=== PATIENT | male | born 1950 | race Caucasian/White ===

== ENCOUNTER 2021-02-18 02:50 | Inpatient (IN) | payer MEDICARE ==
[2021-02-18] MEDS ORDERED: SODIUM CHLORIDE 0.9% 1,000 ML IV STA (02:52)
[2021-02-18] MEDS ORDERED: ACETAMINOPHEN TAB 500 MG TAB PO STA (02:52)
[2021-02-18] MEDS ORDERED: ALBUTEROL HFA INHALER INHALATION STA (02:52)
[2021-02-18] MEDS ORDERED: KETOROLAC 15 MG/ML 1 ML VIAL IVP STA (02:52)
[2021-02-18] MEDS ORDERED: DEXAMETHASONE SOD PHOSPHATE 10 MG/ML 1 ML VIAL IV STA (02:52)
--- NOTE | 2021-02-18 03:05 | ED ---
Recheck HPI - General Stated Complaint: SOB,Covid+ Time Seen by Provider: 02/18/21 02:52 Source: RN notes reviewed, old records reviewed Mode of arrival: ambulatory Limitations: no limitations - History of Present Illness Initial Comments: This is a 70-year-old male DF for evaluation severe shortness of breath. Patient was diagnosed with coronavirus and 02/04/2021 Patient breathing symptoms that began a week or so prior. Patient having persistent significant shortness of breath. He did have a four-day hospital stay after diagnosis and has not improved since discharge MD Complaint: other (Skin shortness of breath and weakness secondary to coron avirus) -: week(s) Returns Today for: Called Because of Abnormal Lab/Test, persistent/worsening pain related to initial visit Symptoms Since Prior Visit: worsening pain, fever Context: planned re-check Associated Symptoms: fever, chills, chest pain, shortness of breath Treatments Prior to Arrival: Given Pain Meds on - Related Data Allergies Allergy/AdvReac Type Severity Reaction Status Date / Time No Known Allergies Allergy Verified 02/18/21 03:07 Review of Systems ROS Statement: Those systems with pertinent positive or pertinent negative responses have been documented in the HPI. ROS Other: All systems not noted in ROS Statement are negative. General Exam General appearance: alert, in no apparent distress, anxious, in distress Head exam: Present: atraumatic, normocephalic, normal inspection Eye exam: Present: normal appearance, PERRL, EOMI. Absent: scleral icterus, conjunctival injection, periorbital swelling ENT exam: Present: normal exam, mucous membranes moist Neck exam: Present: normal inspection. Absent: tenderness, meningismus, lymphadenopathy Respiratory exam: Present: normal lung sounds bilaterally. Absent: respiratory distress, wheezes, rales, rhonchi, stridor Cardiovascular Exam: Present: regular rate, normal rhythm, normal heart sounds. Absent: systolic murmur, diastolic murmur, rubs, gallop, clicks GI/Abdominal exam: Present: soft, normal bowel sounds. Absent: distended, tenderness, guarding, rebound, rigid Extremities exam: Present: normal inspection, full ROM, normal capillary refill. Absent: tenderness, pedal edema, joint swelling, calf tenderness Back exam: Present: normal inspection Neurological exam: Present: alert, oriented X3, CN II-XII intact Psychiatric exam: Present: normal affect, normal mood Skin exam: Present: warm, dry, intact, normal color. Absent: rash Course Vital Signs 02/18/21 02/18/21 02/18/21 03:05 03:30 03:52 Temperature 97.8 F Pulse Rate 100 96 Respiratory 22 22 16 Rate Blood Pressure 150/95 124/84 O2 Sat by Pulse 93 L 95 Oximetry 02/18/21 05:00 Temperature Pulse Rate 87 Respiratory 18 Rate Blood Pressure 127/77 O2 Sat by Pulse 97 Oximetry - Reevaluation(s) Reevaluation #1: 02/18/21 06:15 Medical record is reviewed Medical Decision Making - Lab Data Result diagrams: 02/18/21 03:20 02/18/21 03:20 Lab Results 02/18/21 02/18/21 02/18/21 Range/Units 03:20 03:20 03:20 WBC 12.5 H (3.8-10.6) k/uL RBC 4.60 (4.30-5.90) m/uL Hgb 14.6 (13.0-17.5) gm/dL Hct 41.9 (39.0-53.0) % MCV 91.1 (80.0-100.0) fL MCH 31.7 (25.0-35.0) pg MCHC 34.8 (31.0-37.0) g/dL RDW 13.3 (11.5-15.5) % Plt Count 277 (150-450) k/uL MPV 7.4 Neutrophils % 85 % Lymphocytes % 6 % Monocytes % 5 % Eosinophils % 2 % Basophils % 0 % Neutrophils # 10.6 H (1.3-7.7) k/uL Lymphocytes # 0.7 L (1.0-4.8) k/uL Monocytes # 0.7 (0-1.0) k/uL Eosinophils # 0.2 (0-0.7) k/uL Basophils # 0.0 (0-0.2) k/uL PT 10.4 (9.0-12.0) sec INR 1.0 (<1.2) APTT 22.9 (22.0-30.0) sec Sodium (137-145) mmol/L Potassium (3.5-5.1) mmol/L Chloride (98-107) mmol/L Carbon Dioxide (22-30) mmol/L Anion Gap mmol/L BUN (9-20) mg/dL Creatinine (0.66-1.25) mg/dL Est GFR (CKD-EPI)AfAm (>60 ml/min/1.73 sqM) Est GFR (CKD-EPI)NonAf (>60 ml/min/1.73 sqM) Glucose (74-99) mg/dL Plasma Lactic Acid Kuldeep (0.7-2.0) mmol/L Calcium (8.4-10.2) mg/dL Magnesium (1.6-2.3) mg/dL Total Bilirubin (0.2-1.3) mg/dL AST (17-59) U/L ALT (4-49) U/L Alkaline Phosphatase (38-126) U/L Lactate Dehydrogenase (313-618) U/L C-Reactive Protein (<1.0) mg/dL NT-Pro-B Natriuret Pep 113 pg/mL Total Protein (6.3-8.2) g/dL Albumin (3.5-5.0) g/dL 02/18/21 02/18/21 Range/Units 03:20 03:20 WBC (3.8-10.6) k/uL RBC (4.30-5.90) m/uL Hgb (13.0-17.5) gm/dL Hct (39.0-53.0) % MCV (80.0-100.0) fL MCH (25.0-35.0) pg MCHC (31.0-37.0) g/dL RDW (11.5-15.5) % Plt Count (150-450) k/uL MPV Neutrophils % % Lymphocytes % % Monocytes % % Eosinophils % % Basophils % % Neutrophils # (1.3-7.7) k/uL Lymphocytes # (1.0-4.8) k/uL Monocytes # (0-1.0) k/uL Eosinophils # (0-0.7) k/uL Basophils # (0-0.2) k/uL PT (9.0-12.0) sec INR (<1.2) APTT (22.0-30.0) sec Sodium 130 L (137-145) mmol/L Potassium 4.5 (3.5-5.1) mmol/L Chloride 97 L (98-107) mmol/L Carbon Dioxide 26 (22-30) mmol/L Anion Gap 7 mmol/L BUN 16 (9-20) mg/dL Creatinine 0.68 (0.66-1.25) mg/dL Est GFR (CKD-EPI)AfAm >90 (>60 ml/min/1.73 sqM) Est GFR (CKD-EPI)NonAf >90 (>60 ml/min/1.73 sqM) Glucose 115 H (74-99) mg/dL Plasma Lactic Acid Kuldeep 1.4 (0.7-2.0) mmol/L Calcium 8.9 (8.4-10.2) mg/dL Magnesium 2.0 (1.6-2.3) mg/dL Total Bilirubin 0.7 (0.2-1.3) mg/dL AST 24 (17-59) U/L ALT 29 (4-49) U/L Alkaline Phosphatase 82 (38-126) U/L Lactate Dehydrogenase 825 H (313-618) U/L C-Reactive Protein 7.2 H (<1.0) mg/dL NT-Pro-B Natriuret Pep pg/mL Total Protein 6.5 (6.3-8.2) g/dL Albumin 3.2 L (3.5-5.0) g/dL - EKG Data -: EKG Interpreted by Me (EKG is sinus tachycardia [id number] QRS 94 QTC 471) Disposition Referrals: Ascencion Anaya MD [Primary Care Provider] - 1-2 days
[2021-02-18 03:42] LABS: Basophils % (A) 0 %; Eosinophils # (A) 0.2 k/uL (0-0.7); Eosinophils % (A) 2 %; HCT 41.9 % (39.0-53.0); HGB 14.6 gm/dL (13.0-17.5); Lymphocytes # (A) 0.7 k/uL (1.0-4.8); Lymphocytes % (A) 6 %; MCH 31.7 pg (25.0-35.0); MCHC 34.8 g/dL (31.0-37.0); MCV 91.1 fL (80.0-100.0); Mean Platelet Volume 7.4; Monocytes # (A) 0.7 k/uL (0-1.0); Monocytes % (A) 5 %; Neutrophils # (A) 10.6 k/uL (1.3-7.7); Neutrophils % (A) 85 %; Platelet Count 277 k/uL (150-450); RDW 13.3 % (11.5-15.5); WBC 12.5 k/uL (3.8-10.6)
[2021-02-18 03:48] LABS: Partial Thromboplastin Time 22.9 sec (22.0-30.0); Prothrombin Time 10.4 sec (9.0-12.0)
[2021-02-18 03:53] LABS: ALT 29 U/L (4-49); AST 24 U/L (17-59); African American GFR (CKD) >90 (>60 ml/min/1.73 sqM); Albumin 3.2 g/dL (3.5-5.0); Alkaline Phosphatase 82 U/L (38-126); Anion Gap 7 mmol/L; Blood Urea Nitrogen 16 mg/dL (9-20); C Reactive Protein 7.2 mg/dL (<1.0); Calcium 8.9 mg/dL (8.4-10.2); Carbon Dioxide 26 mmol/L (22-30); Chloride 97 mmol/L (98-107); Glucose 115 mg/dL (74-99); LDH 825 U/L (313-618); Non-African American GFR(CKD) >90 (>60 ml/min/1.73 sqM); Potassium 4.5 mmol/L (3.5-5.1); Sodium 130 mmol/L (137-145); Total Bilirubin 0.7 mg/dL (0.2-1.3); Total Protein 6.5 g/dL (6.3-8.2)
--- NOTE | 2021-02-18 05:02 | CT ---
EXAMINATION TYPE: CT angio chest DATE OF EXAM: 02/18/2021 COMPARISON: None HISTORY: R/O PE CT DLP: 648.20 mGycm Automated exposure control for dose reduction was used. CONTRAST: Performed with IV Contrast, patient injected with 90 mL of Isovue 370. Images obtained from the thoracic inlet to the diaphragm with IV contrast. There are 3-D post process ed images. There is extensive patchy predominantly peripheral interstitial and airspace infiltrate. There are a few mediastinal lymph nodes up to 1.5 cm. There are bilateral mild bronchial lymph nodes up to 1 cm. Thoracic aorta is intact. There is no aneurysm or dissection. There is normal contrast opacification of the pulmonary arteries. I see no filling defect. There is s uboptimal contrast density in the smaller branches of the pulmonary arteries. Thoracic spine is intac t. Sternum is intact. IMPRESSION: No evidence of pulmonary embolism. Extensive bilateral pneumonia. Mild mediastinal and bronchial mateus opathy.
[2021-02-18] MEDS ORDERED: MORPHINE SULFATE 4 MG/ML SYRINGE IV PRN (06:06)
[2021-02-18] MEDS ORDERED: NALOXONE 0.4 MG/ML 1 ML VIAL IV PRN (06:06)
[2021-02-18] MEDS ORDERED: ONDANSETRON 4 MG/2 ML VIAL IVP PRN (06:06)
[2021-02-18] MEDS ORDERED: ACETAMINOPHEN TAB 325 MG TAB PO PRN (06:06)
[2021-02-18] MEDS: SODIUM CHLORIDE 0.9% 1,000 ML IV SCH ×3 (08:16→22:53)
[2021-02-18] MEDS ORDERED: ENOXAPARIN 40 MG/0.4 ML SYRINGE SQ SCH (09:00)
--- NOTE | 2021-02-18 13:09 | P.CNPUL ---
<Rosa Isela Zarco - Last Filed: 02/18/21 13:01> History of Present Illness Consult date: 02/18/21 Requesting physician: Donald Cabrera Reason for consult: hypoxemia, abnormal CXR/CT Chief complaint: Shortness of breath, cough, CoVID History of present illness: This is a very pleasant 70-year-old gentleman who follows with Dr. Arnold as his primary care provider. He has a history of hypertension. 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 He was seen and evaluated at the [facility] that was back in 2012. Since that time he had been doing very well. 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 When he got back to [facility] and he started feeling worse and thought it was the mold exposure and was treated 1-1/2 weeks with steroids. He did not get any better. By February 04 he had gone to the emergency room at [place] and was tested positive. Pneumonia. He stayed 4 days in the hospital and was d ischarged home on oxygen. He is still not been feeling quite back to his baseline. He presented here to the emergency room early this a.m. and had complaints of increasing shortness of breath cough and congestion. He is seen today in consultation in the emergency room. He is currently sitting up on the stretcher. Awake and alert in mild respiratory distress. Dry nonproductive cough. Maintaining O2 saturations in the 90s on 4 L/m per nasal cannula. He is afebrile. Hemodynamically stable. White count 12.5. Hemoglobin 14.6. Lymphocytes 0.7. Sodium 1:30. Potassium 4.5. Creatinine 0.68. Glucose 1:15. LDH 825. C-reactive protein 7.2. CT angiogram ruled out pulmonary embolism. T here is an extensive bilateral pneumonia. Mild mediastinal and bronchial adenopathy. He's been initiated on Decadron, Lovenox albuterol. Review of Systems REVIEW OF SYSTEMS: CONSTITUTIONAL: Denies any recent significant weight loss or weight gain. EYES: Denies change in vision. EARS, NOSE, MOUTH, THROAT: Denies headaches, denies sore throat. CARDIOVASCULAR: Denies chest pain, palpitations or syncopal episodes. RESPIRATORY: Positive for shortness of breath, cough, congestion no hemoptysis. GASTROINTESTINAL: Denies change in appetite, denies abdominal pain GENITOURINARY: Denies hematuria, denies infections. MUSKULOSKELETAL: Denies pain, denies swelling. INTEGUMENTARY: Denies rash, denies eczema. NEUROLOGICAL: Denies recent memory loss, no recent seizure activity. PSYCHIATRIC: Denies anxiety, denies depression. HEMATOLOGIC/LYMPHATIC: Denies anemia, denies enlarged lymph nodes. Past Medical History Past Medical History: Hypertension History of Any Multi-Drug Resistant Organisms: None Reported Past Surgical History: No Surgical Hx Reported Past Psychological History: No Psychological Hx Reported Smoking Status: Never smoker Past Alcohol Use History: None Reported Past Drug Use History: None Reported Medications and Allergies Home Medications Medication Instructions Recorded Confirmed Type Albuterol Sulfate [Ventolin HFA] 1 puff INHALATION RT-Q4H PRN 02/18/21 02/18/21 History Hydrocortisone Pr Cream 1 applic RECTAL BID 02/18/21 02/18/21 History [Proctosol-Hc 2.5%] lisinopriL 20 mg PO DAILY 02/18/21 02/18/21 History Allergies Allergy/AdvReac Type Severity Reaction Status Date / Time No Known Allergies Allergy Verified 02/18/21 07:05 Physical Exam Vitals: Vital Signs Temp Pulse Resp BP Pulse Ox 02/18/21 08:11 98.6 F 76 16 134/80 96 02/18/21 06:00 89 18 117/79 95 02/18/21 05:00 87 18 127/77 97 02/18/21 03:52 96 16 124/84 95 02/18/21 03:30 22 02/18/21 03:05 97.8 F 100 22 150/95 93 L Intake and Output 02/17/21 02/18/21 02/18/21 22:59 06:59 14:59 Other: Weight 117.934 kg GENERAL EXAM: Alert, obese, very pleasant 70-year-old gentleman, on 4 L nasal cannula, fairly comfortable in no apparent distress. HEAD: Normocephalic. EYES: Normal reaction of pupils, equal size. NOSE: Clear with pink turbinates. THROAT: No erythema or exudates. NECK: No masses, no JVD. CHEST: No chest wall deformity. LUNGS: Equal air entry with coarse crackles in the posterior bases. CVS: S1 and S2 normal with no audible murmur, regular rhythm. ABDOMEN: No hepatosplenomegaly, normal bowel sounds, no guarding or rigidity. SPINE: No scoliosis or deformity SKIN: No rashes CENTRAL NERVOUS SYSTEM: No focal deficits, tone is normal in all 4 extremities. EXTREMITIES: There is no peripheral edema. No clubbing, no cyanosis. Peripheral pulses are intact. Results - Laboratory Findings CBC and BMP: 02/18/21 03:20 02/18/21 03:20 PT/INR, D-dimer PT 10.4 sec (9.0-12.0) 02/18/21 03:20 INR 1.0 (<1.2) 02/18/21 03:20 Abnormal lab findings: Abnormal Labs 02/18/21 02/18/21 03:20 03:20 WBC 12.5 H Neutrophils # 10.6 H Lymphocytes # 0.7 L Sodium 130 L Chloride 97 L Glucose 115 H Lactate Dehydrogenase 825 H C-Reactive Protein 7.2 H Albumin 3.2 L - Diagnostic Findings CT scan - chest: image reviewed Assessment and Plan Assessment: 1 Acute hypoxemic respiratory failure secondary to acute COVID-19 pneumonia. Initial diagnosis 02/04/2021. Outside the window for Remdesivir. 2 Recent hospitalization earlier this month for 4 days at [facility] for COVID-19 pneumonia. Discharged home on oxygen. 3 Previous history of mold exposure with significant pulmonary symptoms treated at the [facility] in 2012 4 Obesity 5 Hypertension 6 Nonsmoker Plan: The patient was seen and evaluated by Dr. Kruger Labs and CAT scan of the chest reviewed Outside the window for Remdesivir On oxygen at 4 L/m Continue Decadron 6 mg daily, Lovenox 40 mg daily Add vitamin supplements Titrate the FiO2 as tolerated Follow-up chest x-ray and labs in the a.m. We will continue to follow and make further recommendations based on his clinical status I, the cosigning physician, performed a history & physical examination of the patient. Lungs sounds are coarse crackles in the posterior bases. Maintaining good O2 saturations in the 90s on 4 L/m per nasal cannula. I discussed the assessment and plan of care with my nurse practitioner, Rosa Isela Zarco. I attest to the above consultation as dictated by her. Time with Patient: Greater than 30 <Anselmo Kruger - Last Filed: 02/18/21 16:31> Physical Exam Vitals: Vital Signs Temp Pulse Resp BP Pulse Ox 02/18/21 13:44 98.8 F 86 18 036/88 94 L 02/18/21 08:11 98.6 F 76 16 134/80 96 02/18/21 06:00 89 18 117/79 95 02/18/21 05:00 87 18 127/77 97 02/18/21 03:52 96 16 124/84 95 02/18/21 03:30 22 02/18/21 03:05 97.8 F 100 22 150/95 93 L Intake and Output 02/18/21 02/18/21 02/18/21 06:59 14:59 22:59 Other: Weight 117.934 kg Results - Laboratory Findings CBC and BMP: 02/18/21 03:20 02/18/21 03:20 PT/INR, D-dimer PT 10.4 sec (9.0-12.0) 02/18/21 03:20 INR 1.0 (<1.2) 02/18/21 03:20 Abnormal lab findings: Abnormal Labs 02/18/21 02/18/21 03:20 03:20 WBC 12.5 H Neutrophils # 10.6 H Lymphocytes # 0.7 L Sodium 130 L Chloride 97 L Glucose 115 H Lactate Dehydrogenase 825 H C-Reactive Protein 7.2 H Albumin 3.2 L Assessment and Plan Assessment: I saw this patient an emergency in conjunction with the nurse practitioner. This patient is diagnosed having COVID-19 infection on 02/04/2021. In my opinion, the patient is gradually recovering. No objective evidence of any wo rsening his condition. I'm going to obtain a CAT scan from [facility] and compared to the current CAT scan and assess his disease progression. He is currently on levothyroxine by nasal cannula. He'll be given a short course of steroids. He'll be hospitalized. D-dimer will be checked. Doppler of the lower extremity will be checked. If all stable, the patient can be discharged home within next 24-48 hours. No need for Remdesivir. No need for any further treatment at this point in time. Resume home medications. We'll continue to follow.
[2021-02-18] MEDS: HYDROCORTISONE 2.5% RECTAL CREAM 30 GM TUBE RECTAL SCH ×2 (13:43→22:40)
[2021-02-18] MEDS: CHOLECALCIFEROL 25 MCG (1000 IU) TABLET PO SCH (13:50)
[2021-02-18] MEDS: ZINC SULFATE 220 MG CAP PO SCH (13:50)
[2021-02-18] MEDS: ASCORBIC ACID 500 MG TAB PO SCH (13:50)
[2021-02-18] MEDS: lisinopriL 20 MG TAB PO SCH (13:50)
--- NOTE | 2021-02-18 18:05 | US ---
EXAMINATION TYPE: US venous doppler duplex LE DATE OF EXAM: 02/18/2021 5:46 PM COMPARISON: NONE CLINICAL HISTORY: dyspnea, rule out DVT. Dyspnea, rule out DVT. Patient takes aspirin. No hx of DVT. SIDE PERFORMED: Bilateral TECHNIQUE: The lower extremity deep venous system is examined utilizing real time linear array sonog izaiah with graded compression, doppler sonography and color-flow sonography. VESSELS IMAGED: Common Femoral Vein Deep Femoral Vein Greater Saphenous Vein * Femoral Vein Popliteal Vein Small Saphenous Vein * Proximal Calf Veins (* superficial vessels) Right Leg: Rouleaux flow seen throughout veins imaged. No evidence of DVT in veins imaged at this ti me. Left Leg: Internal echoes seen within distal femoral vein at valve, in popliteal vein,and in prox ca lf veins. Color defect seen within these vein segments. There is bilateral peripheral vascular arterial disease. IMPRESSION: 1. Deep vein thrombosis of the left lower extremity-distal femoral vein to popliteal vein and proxima l calf veins. 2. Slow venous flow in the the right lower extremity. 3. Bilateral peripheral vascular arterial disease.
--- NOTE | 2021-02-18 20:15 | P.HPIM ---
History of Present Illness H&P Date: 02/18/21 Chief Complaint: Shortness breath, cough This is a pleasant 70-year-old patient who follows with . Patient had opted not to take the vaccine for COVID 19. On February 04 patient was diagnosed with COVID 19. Patient had just very symptoms the week prior to that. Patient is admitted to [facility] from February 04 through February 08. Will discharge on 3 L of oxygen. Upper discharge patient remained to have cough some 6 phlegm. Shortness of breath. Appetite is fair. Bowel movements are regular. No loss of taste or smell. No headaches. No edema. Patient other tired. Decided to come back to the ER. Admitted. Review of systems: GEN.: Tired EYES: None HEENT: None NECK: None RESPIRATORY: As above CARDIOVASCULAR: None GASTROINTESTINAL: None GENITOURINARY: None MUSCULOSKELETAL: None LYMPHATICS: None HEMATOLOGICAL: None PSYCHIATRY: None NEUROLOGICAL: None Past medical history to include: COVID 19 diagnosed on 02/04/2021, hypertension, hemorrhoids Social history: . 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 Alcohol rarely. Family history: Cancer Physical examination: VITAL SIGNS: 97.8, 100, 22, 150/95, 93% on 3 L GENERAL: BMI 35.3, sitting was incised side of the bed, coughing, short of breath. EYES: Pupils equal. Conjunctiva normal. HEENT: External appearance of nose and ears normal, oral cavity grossly normal. NECK: JVD not raised; masses not palpable. HEART: First and second heart sounds are normal; no edema. LUNGS: Respiratory rate increased, decreased breaths on some coarse crackles. ABDOMEN: Soft, nontender, liver spleen not palpable, no masses palpable. PSYCH: Alert and oriented x3; mood and affect anxiousl. NEUROLOGICAL: Cranial nerves grossly intact; no facial asymmetry, power and sensation grossly intact. LYMPHATICS: No lymph nodes palpable in the axilla and neck INVESTIGATIONS, reviewed in the clinical context: WBC 12.5 hemoglobin 14.6 platelets 277 lymphocytes 0.7 d-dimer 23.8 sodium 1:30 potassium 4.5 creatinine 0.68 LDH 825 CRP 7.2 EKG tracing personally reviewed by me-normal sinus rhythm, some ST segment changes. Chest CTA: Negative for PE. Extensive bilateral infiltrates. Doppler ultrasound: DVT of the left lower extremity distal femoral vein to the popliteal vein and proximal coffees. Slow venous on the right lower extremity. Bilateral peripheral vascular arterial disease. Assessment and plan: -Bilateral COVID 19 pneumonitis. Patient was diagnosed with COVID 19 on February 04. Had symptoms started 1 week prior to that. Patient also had moderate hospi ray from February 04 through February 08. Discharge on 3 L of oxygen. Symptoms have persisted. Dexamethasone. Subcu Lovenox. Vitamin C vitamin D zinc. Consultation to pulmonary. -Acute hypoxic respiratory failure from COVID-19 pneumonia On 5 L of nasal cannula -Obesity BMI 35.3 Weight loss measures -Essential hypertension Lisinopril 20 mg a day -Internal hemorrhoids, symptomatic Proctosol HC 2.5% rectal twice a day. -Acute DVT of the left lower extremity femoral vein to popliteal vein and proximal cough remains. Lovenox 120 mg subcu every 12. BEREKET stockings bilateral. Thigh high -Bilateral peripheral vascular arterial disease. Aspirin 81 mg daily. Lipitor 20 mg daily at bedtime. Dexamethasone 6 mg. Therapeutic doses of Lovenox. Home medications resumed. Consultation to pulmonary. Oxygen supplementation. Care was discussed with the patient. Questions answered. Aspirin. Lipitor. Lipid profile. Past Medical History Past Medical History: Hypertension History of Any Multi-Drug Resistant Organisms: None Reported Past Surgical History: No Surgical Hx Reported Past Psychological History: No Psychological Hx Reported Smoking Status: Never smoker Past Alcohol Use History: None Reported Past Drug Use History: None Reported - Past Family History Mother Family Medical History: Cancer Medications and Allergies Home Medications Medication Instructions Recorded Confirmed Type Albuterol Sulfate [Ventolin HFA] 1 puff INHALATION RT-Q4H PRN 02/18/21 02/18/21 History Hydrocortisone Pr Cream 1 applic RECTAL BID 02/18/21 02/18/21 History [Proctosol-Hc 2.5%] lisinopriL 20 mg PO DAILY 02/18/21 02/18/21 History Allergies Allergy/AdvReac Type Severity Reaction Status Date / Time No Known Allergies Allergy Verified 02/18/21 07:05 Physical Exam Vitals: Vital Signs Temp Pulse Resp BP Pulse Ox 02/18/21 08:11 98.6 F 76 16 134/80 96 02/18/21 06:00 89 18 117/79 95 02/18/21 05:00 87 18 127/77 97 02/18/21 03:52 96 16 124/84 95 02/18/21 03:30 22 02/18/21 03:05 97.8 F 100 22 150/95 93 L Intake and Output 02/17/21 02/18/21 02/18/21 22:59 06:59 14:59 Other: Weight 117.934 kg Results CBC & Chem 7: 02/18/21 03:20 02/18/21 03:20 Labs: Abnormal Lab Results - Last 24 Hours (Table) 02/18/21 02/18/21 Range/Units 03:20 03:20 WBC 12.5 H (3.8-10.6) k/uL Neutrophils # 10.6 H (1.3-7.7) k/uL Lymphocytes # 0.7 L (1.0-4.8) k/uL Sodium 130 L (137-145) mmol/L Chloride 97 L (98-107) mmol/L Glucose 115 H (74-99) mg/dL Lactate Dehydrogenase 825 H (313-618) U/L C-Reactive Protein 7.2 H (<1.0) mg/dL Albumin 3.2 L (3.5-5.0) g/dL
[2021-02-18] MEDS: ATORVASTATIN 20 MG TAB PO SCH (22:39)
[2021-02-18] MEDS: ENOXAPARIN 120 MG/0.8 ML SYRINGE SQ SCH (22:40)
[2021-02-18] MEDS: guaiFENesin 600 MG TABLET.ER PO SCH (22:41)
[2021-02-19] MEDS: ASCORBIC ACID 500 MG TAB PO SCH (08:32)
[2021-02-19] MEDS: lisinopriL 20 MG TAB PO SCH (08:32)
[2021-02-19] MEDS: ENOXAPARIN 120 MG/0.8 ML SYRINGE SQ SCH ×2 (08:32→20:03)
[2021-02-19] MEDS: ZINC SULFATE 220 MG CAP PO SCH (08:32)
[2021-02-19] MEDS: CHOLECALCIFEROL 25 MCG (1000 IU) TABLET PO SCH (08:32)
[2021-02-19] MEDS: dexAMETHasone 2 MG TAB PO SCH (08:32)
[2021-02-19] MEDS: guaiFENesin 600 MG TABLET.ER PO SCH ×4 (08:32→20:03)
[2021-02-19] MEDS: ASPIRIN 81 MG PO SCH (08:32)
[2021-02-19] MEDS: HYDROCORTISONE 2.5% RECTAL CREAM 30 GM TUBE RECTAL SCH ×2 (08:34→20:04)
[2021-02-19 09:54] LABS: Basophils # (A) 0.02 X 10*3/uL (0.00-0.10); Basophils % (A) 0.2 %; Eosinophils # (A) 0.03 X 10*3/uL (0.04-0.35); Eosinophils % (A) 0.2 %; HCT 39.9 % (39.6-50.0); HGB 12.8 g/dL (13.0-17.0); Lymphocytes # (A) 0.89 X 10*3/uL (0.90-5.00); Lymphocytes % (A) 7.1 %; MCH 30.3 pg (27.0-32.0); MCHC 32.1 g/dL (32.0-37.0); MCV 94.5 fL (80.0-97.0); Mean Platelet Volume 10.5 fL (9.5-12.2); Monocytes # (A) 0.87 X 10*3/uL (0.20-1.00); Neutrophils # (A) 10.51 X 10*3/uL (1.80-7.70); Neutrophils % (A) 84.4 %; Platelet Count 246 X 10*3/uL (140-440); RBC 4.22 X 10*6/uL (4.40-5.60); WBC 12.46 X 10*3/uL (4.50-10.00)
[2021-02-19 16:09] LABS: African American GFR (CKD) 111.8 (60.0-200.0); Albumin/Globulin Ratio 1.14 (1.60-3.17); Anion Gap 15.1 mmol/L (4.00-12.00); BUN/Creat Ratio 20.47 Ratio (12.00-20.00); Blood Urea Nitrogen 13.8 mg/dL (9.0-27.0); Calcium 8.6 mg/dL (8.7-10.3); Chol/HDL Ratio 3.07 Ratio; Globulin 2.7 g/dL (1.6-3.3); HDL Cholesterol 53.4 mg/dL (40.00-60.00); LDL Cholesterol,Calculated 92.9 mg/dL (0.0-131.0); Non-African American GFR(CKD) 96.4 (60.0-200.0); Potassium 4.8 mmol/L (3.5-5.5); Total Bilirubin 0.4 mg/dL (0.30-1.20); Total Protein 5.7 g/dL (6.2-8.2); Triglycerides 88.6 mg/dL (0.00-149.00); VLDL Calculation 17.72 mg/dL (5.00-40.00)
--- NOTE | 2021-02-19 16:29 | P.PN ---
Subjective Progress Note Date: 02/19/21 This is a very pleasant 70-year-old gentleman who follows with Dr. Arnold as his primary care provider. He has a history of hypertension. 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 He was seen and evaluated at the [facility] that was back in 2012. Since that time he had been doing very well. Recently had traveled to [place] for his daughter's wedding and was exposed to a combine Harvester plowing afield corn and there is a large amount of black mold floating in the ear that he inhaled. When he got back to [facility] and he started feeling worse and thought it was the mold exposure and was treated 1-1/2 weeks with steroids. He did not get any better. By February 04 he had gone to the emergency room at [facility] and was tested positive. Pneumonia. He stayed 4 days in the hospital and was discharged home on oxygen. He is still not been feeling quite back to his baseline. He presented here to the emergency room early this a.m. and had complaints of increasing shortness of breath cough and congestion. He is seen today in consultation in the emergency room. He is currently sitting up on the stretcher. Awake and alert in mild respiratory distress. Dry nonproductive cough. Maintaining O2 saturations in the 90s on 4 L/m per nasal cannula. He is afebrile. Hemodynamically stable. White count 12.5. Hemoglobin 14.6. L ymphocytes 0.7. Sodium 1:30. Potassium 4.5. Creatinine 0.68. Glucose 1:15. LDH 825. C-reactive protein 7.2. CT angiogram ruled out pulmonary embolism. There is an extensive bilateral pneumonia. Mild mediastinal and bronchial adenopathy. He's been initiated on Decadron, Lovenox albuterol. On today's evaluation of 02/19/2021, seeing the patient for a follow-up. He is feeling well. He denies having any worsening shortness of breath in fact is feeling better compared to yesterday. He remains on oxygen at 4 L per minute cannula. No fever. No chills. He remains on Decadron. D-dimer was elevated. Based on that, further investigation was done including a Doppler of the lower extremity and the patient with was found to have a DVT. The patient was placed on therapeutic dose of Lovenox. For now, we are going to continue the Lovenox and switch this patient to oral Levaquin as of tomorrow. No fever. No chills. D-dimer is declining course. The level dropped from 23 down to 10.5. Objective - Vital Signs Vital signs: Vital Signs Temp 99.0 F 02/19/21 14:27 Pulse 94 02/19/21 14:27 Resp 18 02/19/21 14:27 BP 150/76 02/19/21 14:27 Pulse Ox 95 02/19/21 14:27 Intake & Output 02/18/21 02/19/21 02/19/21 18:59 06:59 18:59 Output Total 1500 1000 Balance -1500 -1000 Weight 117.934 kg Output: Urine 1500 1000 Other: Voiding Method Urinal Urinal - Exam GENERAL EXAM: Alert, obese, very pleasant 70-year-old gentleman, on 4 L nasal cannula, fairly comfortable in no apparent distress. HEAD: Normocephalic. EYES: Normal reaction of pupils, equal size. NOSE: Clear with pink turbinates. THROAT: No erythema or exudates. NECK: No masses, no JVD. CHEST: No chest wall deformity. LUNGS: Equal air entry with coarse crackles in the posterior bases. CVS: S1 and S2 normal with no audible murmur, regular rhythm. ABDOMEN: No hepatosplenomegaly, normal bowel sounds, no guarding or rigidity. SPINE: No scoliosis or deformity SKIN: No rashes CENTRAL NERVOUS SYSTEM: No focal deficits, tone is normal in all 4 extremities. EXTREMITIES: There is no peripheral edema. No clubbing, no cyanosis. Peripheral pulses are intact. - Labs CBC & Chem 7: 02/19/21 06:09 02/19/21 06:09 Labs: Abnormal Lab Results - Last 24 Hours (Table) 02/18/21 02/19/21 02/19/21 Range/Units 16:36 06:09 06:09 WBC 12.46 H (4.50-10.00) X 10*3/uL RBC 4.22 L (4.40-5.60) X 10*6/uL Hgb 12.8 L (13.0-17.0) g/dL Immature Gran # 0.14 H (0.00-0.04) X 10*3/uL Neutrophils # 10.51 H (1.80-7.70) X 10*3/uL Lymphocytes # 0.89 L (0.90-5.00) X 10*3/uL Eosinophils # 0.03 L (0.04-0.35) X 10*3/uL D-Dimer 23.88 H 10.55 H (<0.60) mg/L FEU Carbon Dioxide (21.6-31.8) mmol/L Anion Gap (4.00-12.00) mmol/L BUN/Creatinine Ratio (12.00-20.00) Ratio Glucose (70-110) mg/dL Calcium (8.7-10.3) mg/dL Total Protein (6.2-8.2) g/dL Albumin (3.8-4.9) g/dL Albumin/Globulin Ratio (1.60-3.17) g/dL 02/19/21 Range/Units 06:09 WBC (4.50-10.00) X 10*3/uL RBC (4.40-5.60) X 10*6/uL Hgb (13.0-17.0) g/dL Immature Gran # (0.00-0.04) X 10*3/uL Neutrophils # (1.80-7.70) X 10*3/uL Lymphocytes # (0.90-5.00) X 10*3/uL Eosinophils # (0.04-0.35) X 10*3/uL D-Dimer (<0.60) mg/L FEU Carbon Dioxide 19.0 L (21.6-31.8) mmol/L Anion Gap 15.10 H (4.00-12.00) mmol/L BUN/Creatinine Ratio 20.47 H (12.00-20.00) Ratio Glucose 114 H (70-110) mg/dL Calcium 8.6 L (8.7-10.3) mg/dL Total Protein 5.7 L (6.2-8.2) g/dL Albumin 3.0 L (3.8-4.9) g/dL Albumin/Globulin Ratio 1.14 L (1.60-3.17) g/dL Assessment and Plan Plan: 1 Acute hypoxemic respiratory failure secondary to acute COVID-19 pneumonia. Initial diagnosis 02/04/2021. Outside the window for Remdesivir. The patient is stable in terms of his COVID-19 related pneumonia. Nevertheless, the patient was found to have a left lower extremity DVT and the patient is currently on a therapeutic dose of Lovenox. Mellitus of any pulmonary embolism based on the CT angiogram. 2 Recent hospitalization earlier this month for 4 days at [facility] for COVID-19 pneumonia. Discharged home on oxygen. 3 Previous history of mold exposure with significant pulmonary symptoms treated at the [facility] in 2012 4 Obesity 5 Hypertension 6 Nonsmoker Plan: Continue Decadron Continue therapeutic dose of Lovenox 1 mg per KG and ultimately the patient will be switched to Eliquis within next 24 hours On oxygen at 4 L/m Continue Decadron 6 mg daily vitamin supplements Titrate the FiO2 as tolerated Possible discharge in the next 24 hours
[2021-02-19] MEDS: ATORVASTATIN 20 MG TAB PO SCH (20:03)
[2021-02-19] MEDS: ALBUTEROL HFA INHALER INHALATION PRN (21:01)
--- NOTE | 2021-02-20 00:33 | P.PN ---
Progress Note - Text Progress Note Date: 02/19/21 Chief Complaint: Shortness breath, cough This is a pleasant 70-year-old patient who follows with . Patient had opted not to take the vaccine for COVID 19. On February 04 patient was diagnosed with COVID 19. Patient had just very symptoms the week prior to that. Patient is admitted to [facility] from February 04 through February 08. Was discharge on 3 L of oxygen. Upon discharge patient remained to have cough and some phlegm. Shortness of breath. Appetite is fair. Bowel movements are regular. No loss of taste or smell. No headaches. No edema. Patient other tired. Decided to come back to the ER. Admitted. Admitted with COVID 19 pneumonitis, acute hypoxic respiratory failure. Acute DVT. February 19: Sitting up. Short of breath. Diet. Dexamethasone. Oral intake fair. Review of systems: Was done for constitutional, cardiovascular, GI, pulmonary. relevant finding as above Active Medications Acetaminophen (Acetaminophen Tab 325 Mg Tab) 650 mg PO Q6HR PRN PRN Reason: Mild Pain or Fever > 100.5 Albuterol Sulfate (Albuterol Hfa Inhaler) 1 puff INHALATION RT-Q4H PRN PRN Reason: Shortness Of Breath Last Admin: 02/19/21 21:01 Dose: 1 puff Documented by: Ascorbic Acid (Ascorbic Acid 500 Mg Tab) 1,000 mg PO DAILY [facility] Last Admin: 02/19/21 08:32 Dose: 1,000 mg Documented by: Aspirin (Aspirin 81 Mg) 81 mg PO DAILY [facility] Last Admin: 02/19/21 08:32 Dose: 81 mg Documented by: Atorvastatin Calcium (Atorvastatin 20 Mg Tab) 20 mg PO HS [facility] Last Admin: 02/19/21 20:03 Dose: 20 mg Documented by: Cholecalciferol (Cholecalciferol 25 Mcg (1000 Iu) Tablet) 25 mcg PO DAILY [facility] Last Admin: 02/19/21 08:32 Dose: 25 mcg Documented by: Dexamethasone (Dexamethasone 2 Mg Tab) 6 mg PO DAILY [facility] Last Admin: 02/19/21 08:32 Dose: 6 mg Documented by: Enoxaparin Sodium (Enoxaparin 120 Mg/0.8 Ml Syringe) 120 mg SQ Q12HR [facility] Last Admin: 02/19/21 20:03 Dose: 120 mg Documented by: Guaifenesin (Guaifenesin 600 Mg Tablet.Er) 600 mg PO QID [facility] Last Admin: 02/19/21 20:03 Dose: 600 mg Documented by: Hydrocortisone (Hydrocortisone 2.5% Rectal Cream 30 Gm Tube) 1 applic RECTAL BID [facility] Last Admin: 02/19/21 20:04 Dose: 1 applic Documented by: Sodium Chloride (Saline 0.9%) 1,000 mls @ 20 mls/hr IV .Q24H [facility] Last Admin: 02/18/21 22:53 Dose: Not Given Documented by: Lisinopril (Lisinopril 20 Mg Tab) 20 mg PO DAILY [facility] Last Admin: 02/19/21 08:32 Dose: 20 mg Documented by: Naloxone HCl (Naloxone 0.4 Mg/Ml 1 Ml Vial) 0.2 mg IV Q2M PRN PRN Reason: Opioid Reversal Ondansetron HCl (Ondansetron 4 Mg/2 Ml Vial) 4 mg IVP Q8HR PRN PRN Reason: Nausea And Vomiting Zinc Sulfate (Zinc Sulfate 220 Mg Cap) 220 mg PO DAILY [facility] Last Admin: 02/19/21 08:32 Dose: 220 mg Documented by: Past medical history to include: COVID 19 diagnosed on 02/04/2021, hypertension, hemorrhoids Social history: . 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 Alcohol rarely. Family history: Cancer Physical examination: VITAL SIGNS: 99, 94, 18, 150/76, 95% on 4 L GENERAL: Sitting up. Cough. Some shortness of breath. LUNGS: Respiratory rate increased, . ABDOMEN: Soft, nontender, liver spleen not palpable, no masses palpable. PSYCH: Alert and oriented x3; mood and affect anxiousl. NEUROLOGICAL: Cranial nerves grossly intact; no facial asymmetry, moving all 4 limbs Rest of theExam per pulmonary and nursing INVESTIGATIONS, reviewed in the clinical context: February 19: WBC 12.4 hemoglobin 12.8 d-dimer 10.5 potassium 4.8 creatinine 0.7 WBC 12.5 hemoglobin 14.6 platelets 277 lymphocytes 0.7 d-dimer 23.8 sodium 1:30 potassium 4.5 creatinine 0.68 LDH 825 CRP 7.2 EKG tracing personally reviewed by me-normal sinus rhythm, some ST segment changes. Chest CTA: Negative for PE. Extensive bilateral infiltrates. Doppler ultrasound: DVT of the left lower extremity distal femoral vein to the popliteal vein and proximal coffees. Slow venous on the right lower extremity. Bilateral peripheral vascular arterial disease. Assessment and plan: -Bilateral COVID 19 pneumonitis. Patient was diagnosed with COVID 19 on February 04. Had symptoms started 1 week prior to that. [facility] Discharge on 3 L of oxygen. Symptoms have persisted. Slow to respond Dexamethasone. Subcu Lovenox. Vitamin C vitamin D zinc. Consultation to pulmonary. -Acute hypoxic respiratory failure from COVID-19 pneumonia: Slow to respond On 5 L of nasal cannula -Obesity BMI 35.3 Weight loss measures -Essential hypertension Lisinopril 20 mg a day -Internal hemorrhoids, symptomatic Proctosol HC 2.5% rectal twice a day. -Acute DVT of the left lower extremity femoral vein to popliteal vein and proximal cough remains. Lovenox 120 mg subcu every 12. BEREKET stockings bilateral. Thigh high -Bilateral peripheral vascular arterial disease. Aspirin 81 mg daily. Lipitor 20 mg daily at bedtime. Dexamethasone 6 mg. Therapeutic doses of Lovenox. Discussed with the patient to be up in a chair. Use incentive spirometry. Follow
[2021-02-20] MEDS: SODIUM CHLORIDE 0.9% 1,000 ML IV SCH (03:50)
[2021-02-20] MEDS: ALBUTEROL HFA INHALER INHALATION PRN ×2 (08:21→12:00)
[2021-02-20] MEDS: ENOXAPARIN 120 MG/0.8 ML SYRINGE SQ SCH (09:06)
[2021-02-20] MEDS: dexAMETHasone 2 MG TAB PO SCH (09:06)
[2021-02-20] MEDS: HYDROCORTISONE 2.5% RECTAL CREAM 30 GM TUBE RECTAL SCH (09:06)
[2021-02-20] MEDS: guaiFENesin 600 MG TABLET.ER PO SCH ×2 (09:07→12:49)
[2021-02-20] MEDS: ASCORBIC ACID 500 MG TAB PO SCH (09:07)
[2021-02-20] MEDS: lisinopriL 20 MG TAB PO SCH (09:07)
[2021-02-20] MEDS: ZINC SULFATE 220 MG CAP PO SCH (09:07)
[2021-02-20] MEDS: ASPIRIN 81 MG PO SCH (09:07)
[2021-02-20] MEDS: CHOLECALCIFEROL 25 MCG (1000 IU) TABLET PO SCH (09:07)
[2021-02-20 10:18] VITALS: BP 157/88; PULSE 87; RESP 16; TEMP 98
--- NOTE | 2021-02-20 11:38 | P.PN ---
Subjective Progress Note Date: 02/20/21 This is a very pleasant 70-year-old gentleman who follows with Dr. Arnold as his primary care provider. He has a history of hypertension. 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 He was seen and evaluated at the [facility] that was back in 2012. Since that time he had been doing very well. 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 When he got back to [facility] and he started feeling worse and thought it was the mold exposure and was treated 1-1/2 weeks with steroids. He did not get any better. By February 04 he had gone to the emergency room at [place] and was tested positive. Pneumonia. He stayed 4 days in the hospital and was discharged home on oxygen. He is still not been feeling quite back to his baseline. He presented here to the emergency room early this a.m. and had complaints of increasing shortness of breath cough and congestion. He is seen today in consultation in the emergency room. He is currently sitting up on the stretcher. Awake and alert in mild respiratory distress. Dry nonproductive cough. Maintaining O2 saturations in the 90s on 4 L/m per nasal cannula. He is afebrile. Hemodynamically stable. White count 12.5. Hemoglobin 14.6. L ymphocytes 0.7. Sodium 1:30. Potassium 4.5. Creatinine 0.68. Glucose 1:15. LDH 825. C-reactive protein 7.2. CT angiogram ruled out pulmonary embolism. There is an extensive bilateral pneumonia. Mild mediastinal and bronchial adenopathy. He's been initiated on Decadron, Lovenox albuterol. On today's evaluation of 02/19/2021, seeing the patient for a follow-up. He is feeling well. He denies having any worsening shortness of breath in fact is feeling better compared to yesterday. He remains on oxygen at 4 L per minute cannula. No fever. No chills. He remains on Decadron. D-dimer was elevated. Based on that, further investigation was done including a Doppler of the lower extremity and the patient with was found to have a DVT. The patient was placed on therapeutic dose of Lovenox. For now, we are going to continue the Lovenox and switch this patient to oral Levaquin as of tomorrow. No fever. No chills. D-dimer is declining course. The level dropped from 23 down to 10.5. 02/20/2021, [facility] patient for a follow-up. The patient is doing better compared to yesterday. He has been weaned down to 3 L of oxygen by nasal cannula. He remains on IV heparin and the patient will be switched to oral anticoagulation as the patient is being considered for discharge today. He has no new complaints. No chest pain. No pleurisy. No hemoptysis. No swelling lower extremities. He remains on Lovenox for now and he is also on Decadron 6 mg on a daily basis. Objective - Vital Signs Vital signs: Vital Signs Temp 98 F 02/20/21 10:00 Pulse 87 02/20/21 10:00 Resp 16 02/20/21 10:00 BP 157/88 02/20/21 10:00 Pulse Ox 95 02/20/21 10:00 Intake & Output 02/19/21 02/20/21 02/20/21 18:59 06:59 18:59 Intake Total 236 Output Total 1999 1300 400 Balance -1999 -1300 -164 Intake: Oral 236 Output: Urine 1999 1300 400 Other: Voiding Method Urinal Urinal Urinal # Bowel Movements 1 - Exam GENERAL EXAM: Alert, obese, very pleasant 70-year-old gentleman, on 3 L nasal cannula, fairly comfortable in no apparent distress. HEAD: Normocephalic. EYES: Normal reaction of pupils, equal size. NOSE: Clear with pink turbinates. THROAT: No erythema or exudates. NECK: No masses, no JVD. CHEST: No chest wall deformity. LUNGS: Equal air entry with coarse crackles in the posterior bases. CVS: S1 and S2 normal with no audible murmur, regular rhythm. ABDOMEN: No hepatosplenomegaly, normal bowel sounds, no guarding or rigidity. SPINE: No scoliosis or deformity SKIN: No rashes CENTRAL NERVOUS SYSTEM: No focal deficits, tone is normal in all 4 extremities. EXTREMITIES: There is no peripheral edema. No clubbing, no cyanosis. Peripheral pulses are intact. - Labs CBC & Chem 7: 02/19/21 06:09 02/19/21 06:09 Labs: Abnormal Lab Results - Last 24 Hours (Table) 02/19/21 Range/Units 06:09 Carbon Dioxide 19.0 L (21.6-31.8) mmol/L Anion Gap 15.10 H (4.00-12.00) mmol/L BUN/Creatinine Ratio 20.47 H (12.00-20.00) Ratio Glucose 114 H (70-110) mg/dL Calcium 8.6 L (8.7-10.3) mg/dL Total Protein 5.7 L (6.2-8.2) g/dL Albumin 3.0 L (3.8-4.9) g/dL Albumin/Globulin Ratio 1.14 L (1.60-3.17) g/dL Assessment and Plan Plan: 1 Acute hypoxemic respiratory failure secondary to acute COVID-19 pneumonia. Initial diagnosis 02/04/2021. Outside the window for Remdesivir. The patient is stable in terms of his COVID-19 related pneumonia. Nevertheless, the patient was found to have a left lower extremity DVT and the patient is currently on a therapeutic dose of Lovenox. There is no of any pulmonary embolism based on the CT angiogram. 2 Recent hospitalization earlier this month for 4 days at [facility] for COVID-19 pneumonia. Discharged home on oxygen. 3 Previous history of mold exposure with significant pulmonary symptoms treated at the [facility] in 2012 4 Obesity 5 Hypertension 6 Nonsmoker Plan: Continue Decadron, at a dose of 6 mg and the patient will be discharged home on Decadron to complete a one-week course discontinue the Lovenox and put the patient on Eliquis 5 mg by mouth twice a day for the next one week and 5 mg on the 0.9 regarding his left lower extremity DVT On oxygen at 4 L/m, this has been weaned down to 3 L and the patient has home O2 Titrate the FiO2 as tolerated Possible dischargehome today to be followed up on outpatient basis in the office. Condition is stable. Support his discharge
--- NOTE | 2021-02-20 18:13 | P.DS ---
Providers Date of admission: 02/18/21 06:06 Expected date of discharge: 02/20/21 Attending physician: Donald Cabrera Consults: 02/18/21 06:06 Consult Physician Routine Consulting Provider: Anselmo Kruger Consult Reason/Comments: covidLONG Do you want consulting provider notified?: Yes Primary care physician: [facility] Course: Chief Complaint: Shortness breath, cough This is a pleasant 70-year-old patient who follows with . Patient had opted not to take the vaccine for COVID 19. On February 04 patient was diagnosed with COVID 19. Patient had just very symptoms the week prior to that. Patient is admitted to [facility] from February 04 through February 08. Was discharge on 3 L of oxygen. Upon discharge patient remained to have cough and some phlegm. Shortness of breath. Appetite is fair. Bowel movements are regular. No loss of taste or smell. No headaches. No edema. Patient other tired. Decided to come back to the ER. Admitted. Admitted with COVID 19 pneumonitis, acute hypoxic respiratory failure. Acute DVT. Patient was treated with dexamethasone. He was out of the window for Remdesivir. High dose Lovenox. Patient started to get better. Today: Sitting up in a chair. Eating much better. Oral intake improved. Down to 3 L nasal cannula. Changed over to eliquis. Cleared by pulmonary. Care was discussed with the patient. Questions answered. Discussion and discharge planning more than 35 minutes Consultation: Dr. Kruger from pulmonary Past medical history to include: COVID 19 diagnosed on 02/04/2021, hypertension, hemorrhoids Social history: . 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 Family history: Cancer Physical examination: VITAL SIGNS: 98, 87, 16, 1 57 x 88, 95% on 3 L GENERAL: Sitting up. Breathing better LUNGS: Respiratory rate increased, . ABDOMEN: Soft, nontender, liver spleen not palpable, no masses palpable. PSYCH: Alert and oriented x3; mood and affect anxiousl. NEUROLOGICAL: Cranial nerves grossly intact; no facial asymmetry, moving all 4 limbs Rest of theExam per pulmonary and nursing INVESTIGATIONS, reviewed in the clinical context: February 19: WBC 12.4 hemoglobin 12.8 d-dimer 10.5 potassium 4.8 creatinine 0.7 WBC 12.5 hemoglobin 14.6 platelets 277 lymphocytes 0.7 d-dimer 23.8 sodium 1:30 potassium 4.5 creatinine 0.68 LDH 825 CRP 7.2 EKG tracing personally reviewed by me-normal sinus rhythm, some ST segment changes. Chest CTA: Negative for PE. Extensive bilateral infiltrates. Doppler ultrasound: DVT of the left lower extremity distal femoral vein to the popliteal vein and proximal coffees. Slow venous on the right lower extremity. Bilateral peripheral vascular arterial disease. Assessment and plan: -Bilateral COVID 19 pneumonitis. Patient was diagnosed with COVID 19 on February 04. Had symptoms started 1 week prior to that. [facility]. Discharge on 3 L of oxygen. Symptoms have persisted. Improved Dexamethasone. Subcu Lovenox. Vitamin C vitamin D zinc. Discharged on tapering doses of steroids. -Acute hypoxic respiratory failure from COVID-19 pneumonia: Improving On 3 L of nasal cannula -Obesity BMI 35.3 Weight loss measures -Essential hypertension Lisinopril 20 mg a day -Internal hemorrhoids, symptomatic Proctosol HC 2.5% rectal twice a day. -Acute DVT of the left lower extremity femoral vein to popliteal vein and proximal cough remains. Lovenox 120 mg subcu every 12. BEREKET stockings bilateral. Thigh high. Changed over to eliquis -Bilateral peripheral vascular arterial disease. Aspirin 81 mg daily. Lipitor 20 mg daily at bedtime. Disposition: Home Plan - Discharge Summary Discharge Rx Participant: No (Bun. With Lovenox. Oral Levaquin. No chills. Clinically appropriate 23.5. Terms of his vision Was Elevated) New Discharge Prescriptions: New Aspirin 81 mg PO DAILY #30 tab Zinc Sulfate [Orazinc] 220 mg PO DAILY #30 cap predniSONE 10 mg PO DAILY #30 tab Cholecalciferol [Vitamin D3 (25 Mcg = 1000 Iu)] 25 mcg PO DAILY #30 tablet Apixaban [Eliquis Starter Pack (for VTE)] 5 - 10 mg PO DIRECTED 30 Days #1 each Atorvastatin [Lipitor] 20 mg PO HS #30 tab Ascorbic Acid [Vitamin C] 1,000 mg PO DAILY #30 tab Continue Hydrocortisone Pr Cream [Proctosol-Hc 2.5%] 1 applic RECTAL BID lisinopriL 20 mg PO DAILY Albuterol Sulfate [Ventolin HFA] 1 puff INHALATION RT-Q4H PRN PRN Reason: Shortness Of Breath Discharge Medication List Albuterol Sulfate [Ventolin HFA] 1 puff INHALATION RT-Q4H PRN 02/18/21 [History] Hydrocortisone Pr Cream [Proctosol-Hc 2.5%] 1 applic RECTAL BID 02/18/21 [History] lisinopriL 20 mg PO DAILY 02/18/21 [History] Apixaban [Eliquis Starter Pack (for VTE)] 5 - 10 mg PO DIRECTED 30 Days #1 each 02/19/21 [Rx] Ascorbic Acid [Vitamin C] 1,000 mg PO DAILY #30 tab 02/20/21 [Rx] Aspirin 81 mg PO DAILY #30 tab 02/20/21 [Rx] Atorvastatin [Lipitor] 20 mg PO HS #30 tab 02/20/21 [Rx] Cholecalciferol [Vitamin D3 (25 Mcg = 1000 Iu)] 25 mcg PO DAILY #30 tablet 02/20/21 [Rx] Zinc Sulfate [Orazinc] 220 mg PO DAILY #30 cap 02/20/21 [Rx] predniSONE 10 mg PO DAILY #30 tab 02/20/21 [Rx] Follow up Appointment(s)/Referral(s): Ascencion Anaya MD [Primary Care Provider] - 1-2 days (Please call and make an appointment) Anselmo Kruger MD [STAFF PHYSICIAN] - 04/06/21 1:30 pm Patient Instructions/Handouts: Coronavirus Disease 2019 (COVID-19) Discharge Disposition: HOME SELF-CARE
[2021-02-20] MEDS ORDERED: APIXABAN 5 MG TAB PO SCH (21:00)
== END 2021-02-20 15:11 | disposition home or self-care (01) | DRG 177 ==
LOC: EC 02:50 → 4SSUR 06:06
PROVIDERS: ADMIT Hospitalist; ATTEND Hospitalist
PROC: 3E0333Z Introduction of Anti-inflammatory into Peripheral Vein, Percutaneous Approach (ICD-10-PCS; principal; 2021-02-20)
DX: U07.1 COVID-19 (principal); J12.82 Pneumonia due to coronavirus disease 2019; J96.01 Acute respiratory failure with hypoxia; I82.402 Acute embolism and thrombosis of unspecified deep veins of left lower extremity; E66.9 Obesity, unspecified; Z68.35 Body mass index [BMI] 35.0-35.9, adult; I10 Essential (primary) hypertension; K64.8 Other hemorrhoids; Z77.120 Contact with and (suspected) exposure to mold (toxic); Z79.82 Long term (current) use of aspirin; Z79.899 Other long term (current) drug therapy
CPT/HCPCS: 36415; 71275; 80053; 80061; 83605; 83615; 83735; 83880; 85025; 85379; 85610; 85730; 86140; 93005; 93970; 94640; 96361; 96374; 96375; 99285